=== PATIENT | male | born 1990 | race Caucasian/White ===

== ENCOUNTER 2019-12-21 14:46 | Emergency (ER) | payer BC ==
[2019-12-21] MEDS ORDERED: Sodium Chloride 0.9% 2.5 ML Syringe FLUSH PRN (14:50)
[2019-12-21] MEDS ORDERED: Sodium Chloride 0.9% 10 ML Syringe FLUSH PRN (14:50)
[2019-12-21] MEDS ORDERED: Sodium Chloride 0.9% 10 ML SDV IV PRN (14:50)
[2019-12-21] MEDS ORDERED: Midazolam 1 MG/ML 2 ML SDV ONE ×2 (15:20→15:32)
[2019-12-21] MEDS ORDERED: Midazolam 1 MG/ML 2 ML SDV IVPUSH ONE (15:22)
[2019-12-21] MEDS ORDERED: fentaNYL 100 MCG/2 ML SDV ONE (15:25)
[2019-12-21] MEDS ORDERED: Sodium Chloride 0.9% 1,000 ML IV ONE (15:28)
--- NOTE | 2019-12-21 15:28 | CT ---
Head CT Technique: Multiple axial sections through the brain were obtained. Intravenous contrast was not utilized. Comparison: No prior intracranial imaging is available. Findings:Ventricles along with basal cisterns and sulci over the convexities are within normal limits for the patient's age. No abnormal parenchymal densities are seen. No evidence of intracranial hemorrhage. No midline shift or mass-effect is seen. Bone window settings were reviewed which show no acute calvarial abnormality. There is mucosal thickening seen within the right mastoid sinus. Mucosal thickening is seen within the right maxillary sinus and ethmoid sinus as well as within both frontal sinuses and sphenoid sinus. Impression: 1. Sinus disease. Uncertain if findings are acute or chronic. 2. No acute intracranial abnormality is identified on noncontrast head CT exam. If strong suspicions remain for an ischemic event, MRI study could then be considered. Diagnostic code #3 This report was dictated in [place] Standard Time
[2019-12-21] MEDS ORDERED: levETIRAcetam 1,000 MG in Sodium Chloride 0.9% 100 ML IV ONE (15:30)
[2019-12-21] MEDS ORDERED: propofoL 100 ML ONE (15:32)
[2019-12-21 15:49] LABS: BLOOD UREA NITROGEN,BUN 16 mg/dL (7.0-18.0); CARBON DIOXIDE,CO2 25.2 mmol/L (21.0-32.0); CHLORIDE,CL 105 mmol/L (98-107); GLUCOSE RANDOM 95 mg/dL (74-106); POTASSIUM,K 3.8 mmol/L (3.5-5.1); SODIUM,NA 142 mmol/L (136-148)
[2019-12-21] MEDS ORDERED: Iopamidol 755 MG/ML 200 ML Multipack Bottle IVPUSH ONE (15:59)
--- NOTE | 2019-12-21 16:02 | PCM.SN ---
- Free Text/Narrative Note: 1500 Called to ER for stroke code. Pt being transported to CT assisted with transport and monitoring. When returning to ER pt started to have a seizure. [address] Montero to intubate pt. Pt intubated by Dr. Montero with a 4 Glidescope blade with a grade 1 view. 8.0 tube 24 at lip. Positive color change and bilateral breath sounds. Chest x ray ordered. 1531 Meds given for intubation Versed 2mg Etomidate 40 mg Fentanyl 100 mcg Rocuronium 10 mg Succinylcholine 100 mg 1540 After intubation and tube verification pt given additional 40 mg of Rocuronium and Versed 4mg 1600 Versed 2 mg given pt started on Propofol drip EMS here and ready for transport. 1606 No anesthesia concerns noted at this time.
--- NOTE | 2019-12-21 16:31 | CT ---
CT angiogram of brain Technique: Multiple axial sections through the brain were obtained with contrast being in the arterial phase. Comparison: Prior head CT study performed earlier on the same day is available (3 PM). Findings: Both distal vertebral arteries are patent into the basilar artery. Both posterior cerebral arteries appear to be patent. Carotid siphon is patent on both sides. Normal appearance of the middle cerebral arteries and anterior cerebral arteries is noted. No focal areas of occlusion or stenosis. No discrete aneurysm is appreciated. Sinus disease is noted as described on head CT exam. Impression: 1. No abnormality is identified on CT angiogram of the brain. Diagnostic code #1 This report was dictated in [place] Standard Time
--- NOTE | 2019-12-21 16:36 | CT ---
CT neck Technique: Multiple axial sections through the neck were obtained. Study initially performed without contrast. Contrast images then obtained with contrast in the arterial phase. Findings: Both common carotid arteries are patent. Internal carotid arteries are patent. Proximal external carotid arteries are also patent. No focal occlusion or stenosis is seen. No dissection is noted. Vertebral arteries are patent throughout their course into the basilar artery. Impression: 1. No abnormality is identified on CT angiogram of the neck. Diagnostic code #1 This report was dictated in [place] Standard Time
--- NOTE | 2019-12-21 16:47 | EDM.PDOC ---
ED HPI GENERAL MEDICAL PROBLEM - General Chief Complaint: Neuro Symptoms/Deficits Stated Complaint: POSSIBLE STROKE Time Seen by Provider: 12/21/19 16:47 - History of Present Illness INITIAL COMMENTS - FREE TEXT/NARRATIVE: HPI 29-year-old male with an apparent history of HTN and ADHD (both currently unmedicated) presents for evaluation of confusion, difficulty speaking, and right-sided weakness that began almost immediately prior to presentation. Patient reportedly is a good state of health at baseline, as recently run out of his ADHD medications, and may have previously been diagnosed with hypertension but is not currently being treated. The patient may have had a viral upper respiratory type symptoms over the preceding few days. This last weekend he is believed to have 3 generalized seizures with myoclonic jerking. Today while he was riding in a truck with coworkers he is notice to stare off for about 45 seconds to a minute unresponsive and with a blank look on his face , he would then be somewhat confused after each episode, after his final episode he may have had weakness and after the final episode he was brought immediately to the emergency department as his colleagues were concerned that he may have been having a stroke. No known drug abuse history. Patient is currently undergoing a divorce and has been sleeping less. Preceding his staring off spells today the patient was reportedly in his normal health without any confusion. The patients change in mentation occurred suddenly today. Patients colleagues confirm that the patient does not abuse alcohol or drugs. History obtained from patient, patients spouse, and patients coworker. M/S/F/SocHx notable for: please see HPI; remainder reviewed with patient and in chart. ROS: Negative constitutional, eye, cardiovascular, pulmonary, GI, , MSK, skin , neurologic, psychiatric, endocrine unless noted in the HPI. Exam HR 99, RR 24, BP 213/132, temperature (pending), SaO2 90% on room air. Gen: well-developed, muscular, appears given age, no grossly visible abnormalities with the exception of puffy red periorbital tissue, tearing/ watering eyes, and distressed anxious appearing patient who is minimally verbal. HEENT: NC, AT, PEERL, EOMI. Resp: Clear to auscultation bilaterally, normal work of breathing, no accessory muscle usage. Card: Regular rate and rhythm with no murmurs, rubs, or gallops, extremities warm and well perfused. GI: nontender to palpation throughout all quadrants, no discernible abnormalities. : visually normal male external genitalia. MSK: No visible deformities, strength and tone without visually appreciable deficit. Skin: Normal color with no visible lesions. No petechiae appreciated. Neuro: alert, appears to be oriented to self and location, understands questions , minimal ability to communicate or form words, significant expressive aphasia, no facial asymmetry, no gaze preference, CN II-III: pupils equal and reactive (4 ->2mm bilaterally); III, IV, : EOMI with significant horizontal nystagmus, V1- V3: sensation to touch bilaterally intact; VII: no facial asymmetry (frown / smile); VIII: no nystagmus; X: phonation intact; XI: unable to assess, XII: tongue with rightward deviation. Cerebellar: no left upper extremity pronator drift, no left lower extremity dysmetria. Motor: left 5/5 claim attorney strength and plantar flexion, dorsiflexion, hip flexion, hip extension, and knee flexion and extension. 2/5 strength in all of these modalities on the right. Psych: distressed appearing. Labs (pertinent): POC glucose 88 WBC 8.75, Hb 18.6, PLT 299, Na 142, K 3.8, Cr 1.5. Troponin <0.050 TSH 1.45 UA negative (negative nitrate, negative leukocyte esterase. UDS negative PT/INR 1.01, aPTT 23.6 Imaging (pertinent): CT Head: sinus disease. Uncertain findings of acute or chronic. No acute intracranial abnormality is identified on non-contrasted CT exam. CTA Head and Neck: no acute abnormality. CXR: No acute cardiopulmonary disease process, ET tube terminates approximately 4 cm above the Yin. Radiologist read pending. EKG: SR at [address]-segment elevations or depressions, T-wave inversions or new LBBB. MDM Previous chart, nursing note, labs, imaging, and vitals reviewed. A: 29-year-old male with a history of untreated HTN and ADHD (currently off Adderall) presents following 3 apparent absolves type episodes now with DDx: CVA (hemorrhagic, ischemic), TIA, seizure with Todds paralysis, complex migraine with aura, hypoglycemia, transient global amnesia, arrhythmia/ACS, peripheral vestibulopathy, functional / conversion disorder, intracranial mass ( tumor, SDH), metabolic. Evaluation: please refer to the ED course below for full details, however this is felt to be Todds paralysis secondary to new onset seizures, history and exam without evidence of meningitis or encephalitis. Seizures were treated with Alicia Arciniega, and her propofol drip after the patient was intubated for airway protection. Patient was transferred to [facility] by fixed wing ALS. Impression: weakness, suspected Todds paralysis. (please reference below for remainder of encounter information) ED course: initial history was highly limited, the HPI reflects the entirety the history I was unknown at the time of note completion. The initial history is notable for a patient arriving by POV with expressive aphasia, apparent frustration/significant distress, and right-sided weakness and appears to have begun within one hour prior to arrival. Approximately 30 minutes into ED course it was determined that the patient may have had 3 seizures over the last weekend. The patient does not appear (based upon head nodding to simple questions) have a history of EtOH abuse, drug abuse, but endorses that he had prior seizures, and no recent significant trauma. Patient had a decrease in mentation rapidly in the emergency department is worsened and dense right sided weakness, he was transported immediately to the CT scanner and a CT head was obtained, no gross blood appreciated, immediately thereafter a CTA head and neck was obtained. Requested STAT reads from the radiologist electronic health records specialist. Patient had desaturations with decreased levels of consciousness of breathing while the scanner, this was amenable to jaw thrust and supplemental oxygen. Upon return to the emergency department the patient had worsening mentation and respiratory function, he was witnessed have a generalized, and self-limited, tonic-clonic seizure of approximately one minute duration. At approximately this point the non-contrasted CT was returned as unremarkable. The decision was made to intubate the patient due to his waxing waning mentation and trans absence of hypoxemia in poor airway protection. This was performed as documented below. Patient was given 1 g Keppra this time and further medications as per the MAR. [facility] was contacted, their MRIs presently unavailable, [facility] was contacted and the case was discussed with Dr. Price, the neurologist on-call. Images were transferred to their facility and Dr. Price jointly reviewed the CT angiography head and neck with their radiologist, no acute abnormalities were appreciated. Discussion was had with Dr. Price regarding TPA. The patient is felt to be highly atypical for having an ischemic event (hemorrhagic having already been ruled out as well as hypoglycemia), however it cannot be definitively excluded clinical grounds. The refuse driver/coworker who transported the patient to the hospital was eventually located and interviewed, the history of seizure-like activity in the vehicle as well as recent myoclonic episodes with apparent LOC was elicited. As the patient was reportedly in normal health up to a sudden change with his absolves like absence, strongly suspect a seizure with Todds paralysis. It is not felt to be in the patients best interest to give TPA empirically due to the risk of bleeding and the minimal likelihood of benefit given alternate diagnosis and lack of identifiable features I would suggest an ischemic etiology. The patient was transferred by fixed wing ALS with a propofol drip. Endotracheal Intubation Consent: Implied consent. Procedure: After pre-oxygenation, the patient was given rocuronium, etomidate, and succinylcholine. The patient was intubated with a 4 Glidescope blade under Videolaryngoscopy with a grade 1 Cormack-Lehane view. Supplemental oxygenation was provided via nasal cannula throughout the procedure. Positioning was confirmed with direct visualization of the endotrachial tube through vocal cords , auscultation, capnography and chest x-ray. No complications, bleeding, or trauma were encountered during the intubation. At 8-0 ET tube was placed at 23 cm at the teeth. Critical Care Time Organ system(s): TUB RIDER Intervention: Assessment of the patient, interpretation of studies, communication related to patient care. Time: 80 minutes were spent directly related to patient care exclusive of separately billed procedures. - Related Data Allergies Allergy/AdvReac Type Severity Reaction Status Date / Time No Known Allergies Allergy Verified 12/21/19 15:11 Home Meds: Home Meds . [No Known Home Meds] 12/21/19 [History] Past Medical History HEENT History: Reports: None Cardiovascular History: Reports: Hypertension Respiratory History: Reports: None Gastrointestinal History: Reports: None Genitourinary History: Reports: None Musculoskeletal History: Reports: None Neurological History: Reports: None Psychiatric History: Reports: None Endocrine/Metabolic History: Reports: None Hematologic History: Reports: None Immunologic History: Reports: None Oncologic (Cancer) History: Reports: None Dermatologic History: Reports: None - Infectious Disease History Infectious Disease History: Reports: Other (See Below) Other Infectious Disease History: Unknown - Past Surgical History Head Surgeries/Procedures: Reports: None HEENT Surgical History: Reports: None Cardiovascular Surgical History: Reports: None Respiratory Surgical History: Reports: None GI Surgical History: Reports: None Male Surgical History: Reports: None Endocrine Surgical History: Reports: None Neurological Surgical History: Reports: None Musculoskeletal Surgical History: Reports: None Oncologic Surgical History: Reports: None Dermatological Surgical History: Reports: None Social & Family History - Family History Family Medical History: Unobtainable ED ROS GENERAL - Review of Systems Review Of Systems: See Below ED EXAM, GENERAL - Physical Exam Exam: See Below Course - Vital Signs Last Recorded V/S: Last Vital Signs Temp Pulse 99 12/21/19 15:03 Resp 24 H 12/21/19 15:03 BP 213/132 H 12/21/19 15:03 Pulse Ox 98 12/21/19 15:03 - Orders/Labs/Meds Orders: Active Orders 24 hr Category Date Time Status Assess Neurological Status [RC] ASDIRECTED Care 12/21/19 14:50 Active Bedrest [RC] ASDIRECTED Care 12/21/19 14:50 Active Blood Glucose Check, Bedside [RC] ONETIME Care 12/21/19 14:50 Active Cardiac Monitoring [RC] . DIRECTED Care 12/21/19 14:50 Active EKG Documentation Completion [RC] STAT Care 12/21/19 14:50 Active Height and Weight [RC] UPON Care 12/21/19 14:50 Active Initiate Acute Stroke Protocol [RC] STAT Care 12/21/19 14:50 Active NIH Stroke Scale [RC] ASDIRECTED Care 12/21/19 14:50 Active Nursing Bedside Swallow Screen [RC] ASDIRECTED Care 12/21/19 14:50 Active Oxygen Therapy [RC] ASDIRECTED Care 12/21/19 14:50 Active Stroke Education, General [RC] Click to Edit Care 12/21/19 14:50 Active Vital Signs [RC] Q15M Care 12/21/19 14:50 Active Chest 1V Frontal [CR] Stat Exams 12/21/19 14:50 Taken Sodium Chloride 0.9% [Normal Saline] Med 12/21/19 14:50 Active 10 ml IV ASDIRECTED PRN Sodium Chloride 0.9% [Saline Flush] Med 12/21/19 14:50 Active 10 ml FLUSH ASDIRECTED PRN Sodium Chloride 0.9% [Saline Flush] Med 12/21/19 14:50 Active 2.5 ml FLUSH ASDIRECTED PRN Peripheral IV Insertion Adult [OM.PC] Stat Oth 12/21/19 14:50 Ordered Peripheral IV Insertion Adult [OM.PC] Stat Oth 12/21/19 14:50 Ordered Medication Orders Sodium Chloride (Saline Flush) 10 ml FLUSH ASDIRECTED PRN PRN Reason: Keep Vein Open Sodium Chloride (Saline Flush) 2.5 ml FLUSH ASDIRECTED PRN PRN Reason: Keep Vein Open Sodium Chloride (Normal Saline) 10 ml IV ASDIRECTED PRN PRN Reason: IV Use Labs: Laboratory Tests 12/21/19 12/21/19 12/21/19 Range/Units 14:50 14:50 14:50 WBC 8.75 (4.0-11.0) K/uL RBC 6.47 H (4.50-5.90) M/uL Hgb 18.6 H (13.0-17.0) g/dL Hct 54.2 H (38.0-50.0) % MCV 83.8 (80.0-98.0) fL MCH 28.7 (27.0-32.0) pg MCHC 34.3 (31.0-37.0) g/dL RDW Std Deviation 39.9 (28.0-62.0) fl RDW Coeff of Amber 13 (11.0-15.0) % Plt Count 299 (150-400) K/uL MPV 9.70 (7.40-12.00) fL Neut % (Auto) 70.6 (48.0-80.0) % Lymph % (Auto) 17.3 (16.0-40.0) % [place] % (Auto) 9.7 (0.0-15.0) % Eos % (Auto) 2.1 (0.0-7.0) % Baso % (Auto) 0.3 (0.0-1.5) % Neut # (Auto) 6.2 H (1.4-5.7) K/uL Lymph # (Auto) 1.5 (0.6-2.4) K/uL [place] # (Auto) 0.9 H (0.0-0.8) K/uL Eos # (Auto) 0.2 (0.0-0.7) K/uL Baso # (Auto) 0.0 (0.0-0.1) K/uL Nucleated RBC % 0.0 /100WBC Nucleated RBCs # 0 K/uL INR 1.01 APTT 23.6 (18.6-31.3) SEC Sodium 142 (136-148) mmol/L Potassium 3.8 (3.5-5.1) mmol/L Chloride 105 (98-107) mmol/L Carbon Dioxide 25.2 (21.0-32.0) mmol/L BUN 16 (7.0-18.0) mg/dL Creatinine 1.5 H (0.8-1.3) mg/dL Est Cr Clr Drug Dosing TNP Estimated GFR (MDRD) 55.0 ml/min Glucose 95 (74-106) mg/dL Calcium 9.8 (8.5-10.1) mg/dL Total Bilirubin 0.5 (0.2-1.0) mg/dL AST 38 H (15-37) IU/L ALT 62 (14-63) IU/L Alkaline Phosphatase 76 (46-116) U/L Troponin I < 0.050 (0.000-0.056) ng/mL Total Protein 7.9 (6.4-8.2) g/dL Albumin 4.0 (3.4-5.0) g/dL Globulin 3.9 (2.6-4.0) g/dL Albumin/Globulin Ratio 1.0 (0.9-1.6) TSH 3rd Generation 1.45 (0.36-3.74) uIU/mL Urine Color Urine Appearance Urine pH (5.0-8.0) Ur Specific Sharon (1.001-1.035) Urine Protein (NEGATIVE) mg/dL Urine Glucose (UA) (NEGATIVE) mg/dL Urine Ketones (NEGATIVE) mg/dL Urine Occult Blood (NEGATIVE) Urine Nitrite (NEGATIVE) Urine Bilirubin (NEGATIVE) Urine Urobilinogen (<2.0) EU/dL Ur Leukocyte Esterase (NEGATIVE) Urine Opiates Screen (NEGATIVE) Ur Oxycodone Screen (NEGATIVE) Urine Methadone Screen (NEGATIVE) Ur Barbiturates Screen (NEGATIVE) Ur Phencyclidine Scrn (NEGATIVE) Ur Amphetamine Screen (NEGATIVE) U Methamphetamines Scrn (NEGATIVE) U Benzodiazepines Scrn (NEGATIVE) U Cocaine Metab Screen (NEGATIVE) U Marijuana (THC) Screen (NEGATIVE) 12/21/19 12/21/19 Range/Units 15:45 15:45 WBC (4.0-11.0) K/uL RBC (4.50-5.90) M/uL Hgb (13.0-17.0) g/dL Hct (38.0-50.0) % MCV (80.0-98.0) fL MCH (27.0-32.0) pg MCHC (31.0-37.0) g/dL RDW Std Deviation (28.0-62.0) fl RDW Coeff of Amber (11.0-15.0) % Plt Count (150-400) K/uL MPV (7.40-12.00) fL Neut % (Auto) (48.0-80.0) % Lymph % (Auto) (16.0-40.0) % [place] % (Auto) (0.0-15.0) % Eos % (Auto) (0.0-7.0) % Baso % (Auto) (0.0-1.5) % Neut # (Auto) (1.4-5.7) K/uL Lymph # (Auto) (0.6-2.4) K/uL [place] # (Auto) (0.0-0.8) K/uL Eos # (Auto) (0.0-0.7) K/uL Baso # (Auto) (0.0-0.1) K/uL Nucleated RBC % /100WBC Nucleated RBCs # K/uL INR APTT (18.6-31.3) SEC Sodium (136-148) mmol/L Potassium (3.5-5.1) mmol/L Chloride (98-107) mmol/L Carbon Dioxide (21.0-32.0) mmol/L BUN (7.0-18.0) mg/dL Creatinine (0.8-1.3) mg/dL Est Cr Clr Drug Dosing Estimated GFR (MDRD) ml/min Glucose (74-106) mg/dL Calcium (8.5-10.1) mg/dL Total Bilirubin (0.2-1.0) mg/dL AST (15-37) IU/L ALT (14-63) IU/L Alkaline Phosphatase (46-116) U/L Troponin I (0.000-0.056) ng/mL Total Protein (6.4-8.2) g/dL Albumin (3.4-5.0) g/dL Globulin (2.6-4.0) g/dL Albumin/Globulin Ratio (0.9-1.6) TSH 3rd Generation (0.36-3.74) uIU/mL Urine Color YELLOW Urine Appearance CLEAR Urine pH 7.5 (5.0-8.0) Ur Specific Sharon 1.010 (1.001-1.035) Urine Protein NEGATIVE (NEGATIVE) mg/dL Urine Glucose (UA) NEGATIVE (NEGATIVE) mg/dL Urine Ketones NEGATIVE (NEGATIVE) mg/dL Urine Occult Blood NEGATIVE (NEGATIVE) Urine Nitrite NEGATIVE (NEGATIVE) Urine Bilirubin NEGATIVE (NEGATIVE) Urine Urobilinogen 0.2 (<2.0) EU/dL Ur Leukocyte Esterase NEGATIVE (NEGATIVE) Urine Opiates Screen NEGATIVE (NEGATIVE) Ur Oxycodone Screen NEGATIVE (NEGATIVE) Urine Methadone Screen NEGATIVE (NEGATIVE) Ur Barbiturates Screen NEGATIVE (NEGATIVE) Ur Phencyclidine Scrn NEGATIVE (NEGATIVE) Ur Amphetamine Screen NEGATIVE (NEGATIVE) U Methamphetamines Scrn NEGATIVE (NEGATIVE) U Benzodiazepines Scrn NEGATIVE (NEGATIVE) U Cocaine Metab Screen NEGATIVE (NEGATIVE) U Marijuana (THC) Screen NEGATIVE (NEGATIVE) Meds: Medications Generic Name Dose Route Start Last Admin Trade Name Freq PRN Reason Stop Dose Admin Sodium Chloride 10 ml 12/21/19 14:50 Saline Flush FLUSH ASDIRECTED PRN Keep Vein Open Sodium Chloride 2.5 ml 12/21/19 14:50 Saline Flush FLUSH ASDIRECTED PRN Keep Vein Open Sodium Chloride 10 ml 12/21/19 14:50 Normal Saline IV ASDIRECTED PRN IV Use Discontinued Medications Generic Name Dose Route Start Last Admin Trade Name Osman PRN Reason Stop Dose Admin Alteplase, Recombinant Confirm 12/21/19 15:00 Activase Administered 12/21/19 15:01 Dose 100 mg .ROUTE .STK-MED ONE Fentanyl Confirm 12/21/19 15:25 Sublimaze Administered 12/21/19 15:26 Dose 100 mcg .ROUTE .STK-MED ONE Levetiracetam 1,000 mg/ Sodium 110 mls @ 440 mls/hr 12/21/19 15:30 Chloride IV 12/21/19 15:44 ONETIME ONE Propofol Confirm 12/21/19 15:32 Diprivan 100 Ml Administered 12/21/19 15:33 Dose 100 mls @ as directed .ROUTE .STK-MED ONE Iopamidol 100 ml 12/21/19 15:59 12/21/19 15:59 Isovue Multipack-370 (76%) IVPUSH 12/21/19 16:00 100 ml ONETIME ONE Administration Midazolam HCl Confirm 12/21/19 15:20 Versed 1 Mg/Ml Administered 12/21/19 15:21 Dose 2 mg .ROUTE .STK-MED ONE Midazolam HCl Confirm 12/21/19 15:32 Versed 1 Mg/Ml Administered 12/21/19 15:33 Dose 6 mg .ROUTE .STK-MED ONE Departure - Departure Time of Disposition: 16:47 Disposition: DC/Tfer to Other 70 Clinical Impression: Weakness - Discharge Information Referrals: PCP,Unobtain [Primary Care Provider] - Sepsis Event Note - Evaluation Sepsis Screening Result: No Definite Risk - Focused Exam Vital Signs: Vital Signs Pulse Resp BP Pulse Ox 12/21/19 15:03 99 24 H 213/132 H 98 Date Exam was Performed: 12/21/19 Time Exam was Performed: 16:46
--- NOTE | 2019-12-21 17:19 | CR ---
Chest: Portable supine view of the chest was obtained. Comparison: No prior chest imaging. Heart size and mediastinum are normal. Lungs are clear with no acute parenchymal change. Endotracheal tube is seen. Tip lies at the upper level of the clavicles. No discrete bony abnormality is appreciated. Nasogastric tube appears to be present coursing off the inferior edge of the film into the region of the stomach. Impression: 1. Tip of endotracheal tube at the upper level the clavicles. 2. Nasogastric tube appears to be present coursing off the inferior edge of the film into the stomach. 3. Nothing acute is otherwise seen on portable chest x-ray. Diagnostic code #2 This report was dictated in [place] Standard Time
[2019-12-21] MEDS ORDERED: Etomidate 2 MG/ML 20 ML SDV IVPUSH ONE (18:30)
[2019-12-21] MEDS ORDERED: Rocuronium 100 MG/10 ML MDV ONE (18:30)
[2019-12-21] MEDS ORDERED: Succinylcholine 200 MG/10 ML MDV ONE (18:30)
== END 2019-12-21 16:16 | disposition other institution (70) ==
LOC: MW.ED 14:46
DX: R53.1 Weakness (principal); I10 Essential (primary) hypertension
CPT/HCPCS: 31500; 36415; 51702; 70450; 70496; 70498; 71045; 80053; 80305; 81003; 84443; 84484; 85025; 85610; 85730; 93005; 96365; 96375; 99291; 99292; J0330; J1953; J2250; J3490; J7030; J7050; Q9967; 00320